=== PATIENT | male | born 1975 | race Caucasian/White ===

== ENCOUNTER 2024-02-20 15:32 | Emergency (ER) | payer MEDICAID ==
[2024-02-20] MEDS: Diphtheria,Pertussis(Acell),Tetanus Vaccine 0.5 ML Syringe IM ONE (16:35)
== END 2024-02-20 17:02 | disposition home or self-care (01) ==
LOC: JP.ED 15:32
DX: S91.312A Laceration without foreign body, left foot, initial encounter (principal); Z23 Encounter for immunization; X58.XXXA Exposure to other specified factors, initial encounter
CPT/HCPCS: 12002; 90471; 90715; 99282-25